=== PATIENT | female | born 1970 | race Caucasian/White ===

== ENCOUNTER 2017-09-04 10:10 | Outpatient (CLI) | payer MEDICAID ==
[~2017-09-04 10:10] MED LIST: ALBU8.5H8 INH; BUPR150T8 PO; IBUP-1984 PO; METO-539 PO
== END 2017-09-04 10:49 | disposition home or self-care (01) ==
LOC: WOUND CARE 10:10
PROVIDERS: ATTEND Surgery
DX: T81.31XD Disruption of external operation (surgical) wound, not elsewhere classified, subsequent encounter (principal); L97.321 Non-pressure chronic ulcer of left ankle limited to breakdown of skin; I10 Essential (primary) hypertension; J45.909 Unspecified asthma, uncomplicated; Z87.891 Personal history of nicotine dependence; Y83.8 Other surgical procedures as the cause of abnormal reaction of the patient, or of later complication, without mention of misadventure at the time of the procedure
CPT/HCPCS: 99211; A6021; A6206; A6213

== ENCOUNTER 2017-09-11 09:56 | Day surgery (SDC) | payer MEDICAID ==
[2017-09-11] MEDS ORDERED: LIDOcaine 2% 5ml jelly ONE ×2 (10:51→11:11)
== END 2017-09-11 12:00 | disposition home or self-care (01) ==
LOC: WOUND CARE 09:56
PROVIDERS: ATTEND Surgery
DX: T81.4XXD Infection following a procedure, subsequent encounter (principal); I10 Essential (primary) hypertension; L97.321 Non-pressure chronic ulcer of left ankle limited to breakdown of skin; J45.909 Unspecified asthma, uncomplicated; Z87.891 Personal history of nicotine dependence; Y83.8 Other surgical procedures as the cause of abnormal reaction of the patient, or of later complication, without mention of misadventure at the time of the procedure
CPT/HCPCS: 97597; A6021; A6212; A6222

== ENCOUNTER 2017-09-18 10:07 | Day surgery (SDC) | payer MEDICAID ==
[2017-09-18] MEDS ORDERED: LIDOcaine 2% 5ml jelly ONE (11:01)
== END 2017-09-18 11:35 | disposition home or self-care (01) ==
LOC: WOUND CARE 10:07
PROVIDERS: ATTEND Surgery
DX: T81.89XD Other complications of procedures, not elsewhere classified, subsequent encounter (principal); I10 Essential (primary) hypertension; Z87.891 Personal history of nicotine dependence; Y83.8 Other surgical procedures as the cause of abnormal reaction of the patient, or of later complication, without mention of misadventure at the time of the procedure
CPT/HCPCS: 11042; A6021; A6206; A6212

== ENCOUNTER 2017-09-25 10:03 | Day surgery (SDC) | payer MEDICAID ==
[2017-09-25] MEDS ORDERED: LIDOcaine 2% 5ml jelly ONE (10:57)
== END 2017-09-25 11:19 | disposition home or self-care (01) ==
LOC: WOUND CARE 10:03
PROVIDERS: ATTEND Surgery
DX: T81.31XD Disruption of external operation (surgical) wound, not elsewhere classified, subsequent encounter (principal); L97.321 Non-pressure chronic ulcer of left ankle limited to breakdown of skin; I10 Essential (primary) hypertension; J45.909 Unspecified asthma, uncomplicated; Z87.891 Personal history of nicotine dependence; Y83.8 Other surgical procedures as the cause of abnormal reaction of the patient, or of later complication, without mention of misadventure at the time of the procedure
CPT/HCPCS: 97597; A6021; A6212; A6222

== ENCOUNTER 2017-10-02 10:06 | Day surgery (SDC) | payer MEDICAID ==
[2017-10-02] MEDS ORDERED: LIDOcaine 2% 5ml jelly ONE (11:17)
== END 2017-10-02 11:47 | disposition home or self-care (01) ==
LOC: WOUND CARE 10:06
PROVIDERS: ATTEND Surgery
DX: T81.31XD Disruption of external operation (surgical) wound, not elsewhere classified, subsequent encounter (principal); L97.321 Non-pressure chronic ulcer of left ankle limited to breakdown of skin; I10 Essential (primary) hypertension; J45.909 Unspecified asthma, uncomplicated; Z87.891 Personal history of nicotine dependence; Y83.8 Other surgical procedures as the cause of abnormal reaction of the patient, or of later complication, without mention of misadventure at the time of the procedure
CPT/HCPCS: 97597; A6021; A6206; A6213

== ENCOUNTER 2017-10-09 10:10 | Day surgery (SDC) | payer MEDICAID ==
[2017-10-09] MEDS ORDERED: LIDOcaine 2% 5ml jelly ONE (10:41)
[2017-10-09] MEDS ORDERED: hydrocortisone 1% cream 28gm TP ONE (11:05)
== END 2017-10-09 11:18 | disposition home or self-care (01) ==
LOC: WOUND CARE 10:10
PROVIDERS: ATTEND Surgery
DX: T81.31XD Disruption of external operation (surgical) wound, not elsewhere classified, subsequent encounter (principal); L97.321 Non-pressure chronic ulcer of left ankle limited to breakdown of skin; I10 Essential (primary) hypertension; J45.909 Unspecified asthma, uncomplicated; Z87.891 Personal history of nicotine dependence; Y83.8 Other surgical procedures as the cause of abnormal reaction of the patient, or of later complication, without mention of misadventure at the time of the procedure
CPT/HCPCS: 97597; A6021; A6206; A6212

== ENCOUNTER 2017-10-16 09:59 | Day surgery (SDC) | payer MEDICAID ==
[2017-10-16] MEDS ORDERED: LIDOcaine 2% 5ml jelly ONE (10:17)
== END 2017-10-16 10:51 | disposition home or self-care (01) ==
LOC: WOUND CARE 09:59
PROVIDERS: ATTEND Surgery
DX: T81.31XD Disruption of external operation (surgical) wound, not elsewhere classified, subsequent encounter (principal); L97.321 Non-pressure chronic ulcer of left ankle limited to breakdown of skin; I10 Essential (primary) hypertension; J45.909 Unspecified asthma, uncomplicated; Z87.891 Personal history of nicotine dependence; Y83.8 Other surgical procedures as the cause of abnormal reaction of the patient, or of later complication, without mention of misadventure at the time of the procedure
CPT/HCPCS: 17250; A6021; A6212; A6222

== ENCOUNTER 2021-04-28 06:24 | Emergency (ER) | payer MEDICAID ==
[~2021-04-28] VITALS: Ht 162.6 cm; Wt 63.7 kg
[~2021-04-28 06:24] MED LIST changes: +ALBU8.5H17 INH; -ALBU8.5H8 INH
[2021-04-28 06:38] VITALS: BP 153/82
[2021-04-28] MEDS ORDERED: IBUP-1984 PO (09:32)
== END 2021-04-28 09:47 | disposition home or self-care (01) ==
LOC: ER 06:25
DX: S86.911A Strain of unspecified muscle(s) and tendon(s) at lower leg level, right leg, initial encounter (principal); M79.604 Pain in right leg; Z98.890 Other specified postprocedural states; Z91.018 Allergy to other foods; Z79.899 Other long term (current) drug therapy; X58.XXXA Exposure to other specified factors, initial encounter; Y93.89 Activity, other specified; Y92.89 Other specified places as the place of occurrence of the external cause; Y99.8 Other external cause status
CPT/HCPCS: 99282